=== PATIENT | female | born 1950 ===

== ENCOUNTER 2025-08-03 06:00 | Day surgery (SDC) | payer OTHER ==
[~2025-08-03 06:00] MED LIST: SINGULAIR10 MG PO; TOPROL XL50 M1 PO; TRIBENZOR 40-11 EACH PO; VYTORIN 10-101 EACH PO
[2025-08-03] MEDS ORDERED: CEFTRIAXONE SODIUM 2,000 MG VIAL ONE (06:55)
[2025-08-03] MEDS ORDERED: METRONIDAZOLE/SODIUM CHLORIDE 500 MG/100 ML PIGGYBACK IV ONE ×2 (06:56→07:45)
[2025-08-03] MEDS ORDERED: HEMOSTATIC MATRIX 1 KIT KIT TOP ONE ×2 (06:57→07:45)
[2025-08-03] MEDS ORDERED: POVIDONE-IODINE 118 ML BOTT TOP ONE ×2 (06:57→07:45)
[2025-08-03] MEDS ORDERED: BUPIVACAINE HCL/MPF 0.5% 30ML VIAL ONE ×2 (06:57→06:58)
[2025-08-03] MEDS ORDERED: LIDOCAINE HCL 1%/EPINEPHRINE 20ML VIAL IJ ONE ×2 (06:58→07:45)
[2025-08-03] MEDS ORDERED: DIBUCAINE 30 GM TUBE RECTAL ONE (07:45)
[2025-08-03] MEDS ORDERED: BUPIVACAINE HCL 30 ML VIAL IJ ONE (07:45)
[2025-08-03] MEDS ORDERED: CEFTRIAXONE SODIUM 2,000 MG VIAL IV ONE (07:45)
== END 2025-08-03 15:05 | disposition home or self-care (01) ==
LOC: CIR.AMB 06:00
PROVIDERS: ATTEND Colon & Rectal Surgery
DX: D12.8 Benign neoplasm of rectum (principal); D12.9 Benign neoplasm of anus and anal canal